=== PATIENT | male | born 1935 | race Caucasian/White ===

== ENCOUNTER → 2021-08-05 | Outpatient (CLI) | payer MEDICARE ==
--- NOTE | 2021-08-05 15:19 | KCIC ---
MR LUMBAR SPINE WO [id number] 08/05/2021 10:57 AM INDICATION: Spinal stenosis with low back pain and sciatica COMPARISON: None available. TECHNIQUE: Multiplanar, multisequence MR imaging of the lumbar spine was performed without gadoliniu m based contrast. FINDINGS: There is a millimeter anterolisthesis of L5 on S1. No definite pars defect is identified. Vertebral b mary heights are maintained. Schmorl's nodes are identified at the superior and inferior endplate of T 12, inferior endplate of L1, inferior endplate of L2 and superior endplate of L3 without significant height loss. There is moderate disc height loss at L4-L5 and L5-S1 with associated disc desiccation. Mild disc height loss at L3-L4. Conus medullaris terminates at L1. Distal spinal cord signal intensit y is normal in all sequences. Mild Modic type I endplate degenerative changes are identified at L2-L3 . Abdominal aorta is normal in caliber. No suspicious retroperitoneal abnormality is identified. Visu alized portions of the sacrum appear intact. L1-L2: There is a central disc extrusion. Mild facet arthropathy. Mild bilateral neuroforaminal steno sis. Mild to moderate spinal canal stenosis. L2-L3: There is a circumferential disc bulge with right central disc extrusion extending into the rig ht subarticular recess and right foraminal zone. Moderate facet arthropathy. Moderate bilateral neuro foraminal stenosis. Severe spinal canal stenosis. Bilateral lateral recess stenosis, right greater th an left. L3-L4: There is a circumferential disc bulge with right far lateral disc protrusion. Mild facet arthr opathy ligamentum flavum infolding. Moderate severe right and mild left neuroforaminal stenosis. Mode rate spinal canal stenosis. L4-L5: There is a circumferential disc bulge with central disc extrusion. Moderate facet arthropathy ligamentum flavum infolding. Severe bilateral neural foraminal stenosis. Severe spinal canal stenosis . L5-S1: There is a circumferential disc bulge with uncovering of the disc secondary to anterolisthesis . Severe facet arthropathy. Moderate bilateral neuroforaminal stenosis. No significant spinal canal s tenosis. IMPRESSION: Moderate to advanced degenerative changes of lumbar spine as described in detail above. Electronically signed by: Jacquie Marrero MD (08/05/2021 3:16 PM) [id number]
== END ==
LOC: KCIC MRI 10:31
PROVIDERS: ATTEND Family Medicine
DX: M47.816 Spondylosis without myelopathy or radiculopathy, lumbar region (principal); M48.07 Spinal stenosis, lumbosacral region; M51.27 Other intervertebral disc displacement, lumbosacral region; M48.8X7 Other specified spondylopathies, lumbosacral region; M51.37 Other intervertebral disc degeneration, lumbosacral region; G89.29 Other chronic pain; M51.9 Unspecified thoracic, thoracolumbar and lumbosacral intervertebral disc disorder
CPT/HCPCS: 72148

== ENCOUNTER → 2021-11-07 | Outpatient (CLI) | payer MEDICARE ==
--- NOTE | 2021-11-07 14:33 | KCIC ---
MR CERVICAL SPINE WO DATE: 11/07/2021 10:50 AM INDICATION: CERVICAL STENOSIS. Acute LUE shooting pain. Bilateral neck pain. TECHNIQUE: Multiplanar multisequence magnetic resonance imaging of the cervical spine was performed w ithout administration of intravenous contrast using the standard cervical spine protocol. COMPARISON: None. FINDINGS: Postsurgical changes of ACDF at C5-6 Reversal of the cervical lordosis centimeter C5-6. No acute fracture. Moderate to severe multilevel degenerative disc desiccation and disc height loss. Trace degenerative endplate edema at C7-T1. Abnormal T2/STIR hyperintense spinal cord signal and volume loss at C6-7, more pronounced on the left . Additional subtle abnormal signal and slight volume loss at C2-C4. On the limited views of the cranial cavity and brain, the cerebellum and edgard have normal morphology and signal characteristics. No Chiari malformation. No soft tissue abnormality. Normal signal voids are present in the vertebral arteries. C2-3: Disc osteophyte complex. Uncovertebral hypertrophy. Mild right and moderate left facet arthropa thy. Ligamentum flavum thickening. Mild left neural foraminal narrowing. Mild spinal canal stenosis. C3-4: Disc osteophyte complex. Uncovertebral hypertrophy.. Mild right and severe left facet arthropat hy. Ligamentum flavum thickening. Moderate spinal canal stenosis. Severe bilateral neural foraminal n arrowing. C4-5: Disc osteophyte complex. Uncovertebral hypertrophy. Moderate right and mild left facet arthropa thy. Mild to moderate spinal canal stenosis. Severe right and moderate left neural foraminal narrowin g. C5-6: Disc osteophyte complex. Uncovertebral hypertrophy. Moderate right and severe left neural bárbara inal narrowing. No spinal canal stenosis. C6-7: Disc osteophyte complex. Uncovertebral hypertrophy. Moderate right and severe left neural bárbara inal narrowing. No spinal canal stenosis. C7-T1: Disc osteophyte complex. Uncovertebral hypertrophy. Mild facet arthropathy. Moderate to severe bilateral neural foraminal narrowing. No spinal canal stenosis. IMPRESSION: 1. Advanced cervical spondylosis with multilevel severe neural foraminal narrowing. Spinal canal sten osis worst and moderate at C3-4. 2. Severe myelomalacia at C5-6, more pronounced on the left. Additional mild myelomalacia at C2-C4. 3. ACDF at C5-6. Electronically signed by: Supa Coffey MD (11/07/2021 2:31 PM) [id number]
== END ==
LOC: KCIC MRI 10:29
PROVIDERS: ATTEND Family Medicine
DX: M47.22 Other spondylosis with radiculopathy, cervical region (principal); M48.02 Spinal stenosis, cervical region; G95.89 Other specified diseases of spinal cord; M25.78 Osteophyte, vertebrae; M48.8X2 Other specified spondylopathies, cervical region; Z98.1 Arthrodesis status
CPT/HCPCS: 72141